=== PATIENT | female | born 1950 ===

== ENCOUNTER 2022-10-11 07:40 | Outpatient (CLI) | payer OTHER | END 2022-10-11 07:47 | disposition home or self-care (01) | LOC: NUCLEAR 07:40 | PROVIDERS: ATTEND Internal Medicine Hematology & Oncology | DX: C50.412 Malignant neoplasm of upper-outer quadrant of left female breast (principal); Z17.0 Estrogen receptor positive status [ER+] | CPT/HCPCS: 78815; A9552 ==